=== PATIENT | female | born 1975 | race African-American/Black ===

== ENCOUNTER 2018-03-16 10:26 | Emergency (ER) | payer OTHER ==
[~2018-03-16] VITALS: Ht 170.2 cm; Wt 113.4 kg
[~2018-03-16 10:26] MED LIST: BIRTH CONTROL
[2018-03-16] MEDS ORDERED: ULTRAM 50MG TAB50 MG PO ×2 (11:49→11:52)
[2018-03-16 11:51] LABS: HEMATOCRIT 37.8 % (37.0-47.0); HEMOGLOBIN 12.9 gm/dL (12.0-15.0); MCH 29.5 pg (26.0-34.0); MCHC 34.2 g/dL (28.0-37.0); MCV 86.2 fL (80.0-100.0); RBC 4.38 mil/uL (4.20-5.00); RDW 13.9 % (10.5-14.5); WBC 5.8 thou/uL (4.0-11.0)
[2018-03-16 12:01] LABS: CALCIUM 8.7 mg/dL (8.5-10.1); CREATININE 0.7 mg/dL (0.6-1.0)
[2018-03-16] MEDS ORDERED: CRUTCHES MISCELL (12:07)
[2018-03-16 12:28] VITALS: BP 123/78
== END 2018-03-16 12:29 | disposition home or self-care (01) ==
LOC: ER 10:26
PROVIDERS: Physician Assistant
DX: S83.92XA Sprain of unspecified site of left knee, initial encounter (principal); M25.462 Effusion, left knee; X58.XXXA Exposure to other specified factors, initial encounter; Y93.89 Activity, other specified; Y92.89 Other specified places as the place of occurrence of the external cause; Y99.8 Other external cause status